=== PATIENT | female | born 1990 | race Hispanic/Latino ===

== ENCOUNTER 2020-03-10 15:38 | Inpatient (IN) | payer OTHER ==
[~2020-03-10] VITALS: Ht 160 cm; Wt 69.9 kg
[~2020-03-10 15:38] MED LIST: ACET1TAB12 PO; PREN-64 PO
[2020-03-10] MEDS ORDERED: NALOXONE HCL 0.4 MG/1 ML ML IV PRN (19:45)
[2020-03-10] MEDS ORDERED: ROPIVACAINE 0.2% 100ML VIAL 100 ML EP PRN (19:45)
[2020-03-10] MEDS ORDERED: MEPERIDINE-PF 50 MG/ML SYG IVP PRN (19:45)
[2020-03-10] MEDS ORDERED: LACTATED RINGERS 500 ML 500 ML IV PRN (19:45)
[2020-03-10] MEDS ORDERED: EPHEDRINE SULFATE 50 MG/ML AMPULE IVP PRN (19:45)
[2020-03-10] MEDS ORDERED: PROMETHAZINE HCL 25 MG/ML 1ML AMPULE IM PRN (19:45)
[2020-03-10] MEDS ORDERED: LACTATED RINGERS 1000ML 1,000 ML IV PRN (19:45)
[2020-03-10 20:16] LABS: APPEARANCE,URINE Clear (CLEAR); BILIRUBIN,URINE Negative (NEGATIVE); COLOR,URINE Dark Yellow (YELLOW); GLUCOSE, URINE (UA) Negative (NEGATIVE); KETONES,URINE >=160 mg/dL (NEGATIVE); LEUKOCYTE ESTERASE ,URINE Negative (NEGATIVE); NITRATE,URINE Negative (NEGATIVE); OCCULT BLOOD,URINE Negative (NEGATIVE); PROTEIN,URINE Trace mg/dL (NEGATIVE)
[2020-03-10 20:24] LABS: BACTERIA,URINE Rare /HPF (None Seen); MUCUS,URINE Moderate LPF (None Seen); RBC,URINE 0-1 /HPF (0-1); SQUAMOUS EPITHELIAL CELL,UR Few /HPF (0-2)
[2020-03-10 20:40] VITALS: BP 127/88
[2020-03-10] MEDS: OXYTOCIN-LR 20 UNITS/1000 ML 1,000 ML IV SCH (20:40)
[2020-03-10 20:54] LABS: HEMATOCRIT 36.5 % (36-48); MEAN CORPUSCULAR HGB CONC 34.5 g/dL (32.0-36.0); MEAN CORPUSCULAR VOLUME 89.7 fL (79-99); RED BLOOD CELL COUNT(AUTO) 4.07 MIL/uL (4.00-5.50); WHITE BLOOD COUNT (AUTO) 12.2 K/uL (4.8-10.8)
[2020-03-10 21:09] LABS: CREATININE 0.5 mg/dL (0.5-1.5); POTASSIUM 3.5 mmol/L (3.5-5.1)
[2020-03-10 21:14] LABS: BILIRUBIN,TOTAL 0.5 mg/dL (0.2-1.0); TOTAL PROTEIN, SERUM 7.2 g/dL (6.0-8.3); URIC ACID 5.3 mg/dL (2.6-7.2)
[2020-03-10 21:15] LABS: INR 0.87 (0.85-1.15); PARTIAL THROMBOPLASTIN TIME 25.2 SEC (26.3-35.5); PROTHROMBIN TIME 9.4 SEC (9.6-11.6)
[2020-03-11] MEDS: OXYTOCIN-LR 20 UNITS/1000 ML 1,000 ML IV SCH (03:49)
[2020-03-11] MEDS ORDERED: PROM50TA3 PO (06:11)
[2020-03-11] MEDS ORDERED: PREN1TAB80 PO (06:11)
[2020-03-11] MEDS ORDERED: MISOPROSTOL 200 MCG TABLET VG PRN (07:30)
[2020-03-11] MEDS ORDERED: LIDOCAINE HCL 1% 20 ML VIAL INJ PRN (07:30)
[2020-03-11] MEDS ORDERED: METHYLERGONOVINE MALEATE 0.2 MG/1 ML ML IM PRN (07:30)
[2020-03-11] MEDS ORDERED: FENTANYL CITRATE PF 50 MCG/1 ML 2ML VIAL ONE (11:54)
[2020-03-11] MEDS ORDERED: ACETAMINOPHEN-CODEINE 300/30MG TAB PO PRN (13:15)
[2020-03-11] MEDS ORDERED: WITCH HAZEL 1 PAD TP PRN (13:15)
[2020-03-11] MEDS ORDERED: DIPH,PERTUSS(ACELL),TET VAC/PF 0.5 ML VIAL IM PRN (13:15)
[2020-03-11] MEDS ORDERED: OXYTOCIN-LR 20 UNITS/1000 ML 1,000 ML IV SCH (13:15)
[2020-03-11] MEDS ORDERED: LANOLIN 30GM OINTMENT TP PRN (13:15)
[2020-03-11] MEDS ORDERED: MEASLES/MUMPS/RUBELLA VACCINE, LIVE 0.5 ML/VIAL SQ PRN (13:15)
[2020-03-11] MEDS ORDERED: BENZOCAINE/LANOLIN/ALOE VERA 60 ML AEROSOL TP PRN (13:15)
[2020-03-11] MEDS ORDERED: ACETAMINOPHEN 325 MG TAB PO PRN (13:15)
[2020-03-11 14:11] VITALS: BP 128/83
[2020-03-11] MEDS: IBUPROFEN 600 MG TABLET PO PRN (15:24)
[2020-03-11 20:32] VITALS: BP 120/78
[2020-03-11] MEDS: DOCUSATE SODIUM 100 MG CAP PO SCH (20:32)
[2020-03-11 23:28] VITALS: BP 117/83
[2020-03-12] MEDS: IBUPROFEN 600 MG TABLET PO PRN ×2 (00:30→09:58)
[2020-03-12 03:21] VITALS: BP 101/62
[2020-03-12 06:44] LABS: HEMATOCRIT 27.2 % (36-48); MEAN CORPUSCULAR HGB CONC 34.2 g/dL (32.0-36.0); MEAN CORPUSCULAR VOLUME 90.7 fL (79-99); RED CELL DISTRIBUTION WIDTH 12.9 % (11.0-15.5); WHITE BLOOD COUNT (AUTO) 9.3 K/uL (4.8-10.8)
[2020-03-12 07:14] VITALS: BP 101/61
[2020-03-12 09:13] LABS: HEPATITIS Bs ANTIGEN SCREEN P Negative (Negative)
[2020-03-12] MEDS: DOCUSATE SODIUM 100 MG CAP PO SCH (09:58)
[2020-03-12 11:42] VITALS: BP 107/70
== END 2020-03-12 13:45 | disposition home or self-care (01) | DRG 807 ==
LOC: OBSVTOIN 19:21 → LDH 19:21 → WSH 03-11 14:10
PROVIDERS: ADMIT Obstetrics & Gynecology; ATTEND Obstetrics & Gynecology
PROC: 10E0XZZ Delivery of Products of Conception, External Approach (ICD-10-PCS; principal; 2020-03-11)
PROC: 0KQM0ZZ Repair Perineum Muscle, Open Approach (ICD-10-PCS; 2020-03-11)
PROC: 10907ZC Drainage of Amniotic Fluid, Therapeutic from Products of Conception, Via Natural or Artificial Opening (ICD-10-PCS; 2020-03-11)
PROC: 3E033VJ Introduction of Other Hormone into Peripheral Vein, Percutaneous Approach (ICD-10-PCS; 2020-03-11)
PROC: 3E0P7VZ Introduction of Hormone into Female Reproductive, Via Natural or Artificial Opening (ICD-10-PCS; 2020-03-11)
PROC: 3E0234Z Introduction of Serum, Toxoid and Vaccine into Muscle, Percutaneous Approach (ICD-10-PCS; 2020-03-11)
PROC: 3E0134Z Introduction of Serum, Toxoid and Vaccine into Subcutaneous Tissue, Percutaneous Approach (ICD-10-PCS; 2020-03-11)
PROC: 3E0R3BZ Introduction of Anesthetic Agent into Spinal Canal, Percutaneous Approach (ICD-10-PCS; 2020-03-11)
PROC: 00HU33Z Insertion of Infusion Device into Spinal Canal, Percutaneous Approach (ICD-10-PCS; 2020-03-11)
DX: O14.03 Mild to moderate pre-eclampsia, third trimester (principal); Z37.0 Single live birth; O70.1 Second degree perineal laceration during delivery; Z3A.38 38 weeks gestation of pregnancy; Z23 Encounter for immunization
CPT/HCPCS: 36415; 80053; 81001; 84550; 85027; 85384; 85610; 85730; 86592; 86850; 86900; 86901; 87340; 90715; A4314; A4351; G0378; J2175; J2210; J2550; J2590; J2795; J3010

== ENCOUNTER 2024-01-13 18:25 | Emergency (ER) | payer OTHER ==
[~2024-01-13] VITALS: Ht 530.9 cm; Wt 67.6 kg
[~2024-01-13 18:25] MED LIST changes: +PREN1TAB80 PO; +PROM50TA3 PO
[2024-01-13 18:45] VITALS: BP 144/79; PULSE 88; RESP 18; O2SAT 99
[2024-01-13] MEDS: IBUPROFEN 800 MG TAB PO ONE (18:54)
[2024-01-13] MEDS ORDERED: IBUP-2077 PO (18:56)
[2024-01-13] MEDS ORDERED: TRIP30O TP (18:56)
[2024-01-13] MEDS ORDERED: CEPH500B PO (18:56)
[2024-01-13] MEDS: TETANUS/DIPHTHERIA TOXOID [ADULT] 0.5 ML VIAL IM ONE (18:57)
== END 2024-01-13 19:09 | disposition home or self-care (01) ==
LOC: EDH 18:25
DX: T24.211A Burn of second degree of right thigh, initial encounter (principal); T21.22XA Burn of second degree of abdominal wall, initial encounter; Z79.899 Other long term (current) drug therapy; X08.8XXA Exposure to other specified smoke, fire and flames, initial encounter; Y93.89 Activity, other specified; Y92.89 Other specified places as the place of occurrence of the external cause; Y99.8 Other external cause status
CPT/HCPCS: 90471; 90714

== ENCOUNTER 2024-09-14 11:40 | Emergency (ER) | payer OTHER ==
[~2024-09-14] VITALS: Ht 152.4 cm; Wt 70.3 kg
[~2024-09-14 11:40] MED LIST changes: +CEPH500B PO; +IBUP-2077 PO; +TRIP30O TP
--- NOTE | 2024-09-14 12:40 | ERN ---
ED Note History of Present Illness Stated Complaint: VOMITTING,DIARRHEA Chief Complaint: Abdominal Pain Time Seen by MD: 12:05 Time Seen by Midlevel: 12:10 Dictation: 34-year-old female with no past medical history coming in with complaints of nausea and vomiting since yesterday at 8:00 a.m.. Patient states she has had about six episodes of vomiting and six as opposed of diarrhea, nonbloody. States before the symptoms began she had eaten some hot dogs with steele and neal de escobar. Allergies: Coded Allergies: No Known Drug Allergies (Unverified Allergy, Unknown, 06/14/16) Home Meds Active Scripts Famotidine (Pepcid) 20 Mg Tablet, 1 TAB PO BID for 30 Days, #60 TAB 0 Refills Prov:NATALIIA FISCHER ETHYLBENZENE CRACKING SUPERVISOR 09/14/24 Ondansetron (Ondansetron Odt) 4 Mg Tab.rapdis, 4 MG PO Q6HPRN PRN for nausea, #16 TAB 0 Refills Prov:NATALIIA FISCHER ETHYLBENZENE CRACKING SUPERVISOR 09/14/24 Ibuprofen (Ibuprofen 800 mg Tab) 800 Mg Tab, 800 MG PO Q6H PRN for PAIN, #30 TAB Prov:SKYLER REN ETHYLBENZENE CRACKING SUPERVISOR 01/13/24 Cephalexin Monohydrate (Keflex) 500 Mg Cap, 500 MG PO QID for 7 Days, #28 CAP Prov:SKYLER REN ETHYLBENZENE CRACKING SUPERVISOR 01/13/24 Neomy Sulf/Bacitrac Zn/Poly (Triple Antibiotic/Neosporin Oint) 3.5 Mg-400 Unit- 5,000 Unit/Gram Oint, 1 APPL TP TID for 5 Days, #60 GM Prov:SKYLER REN ETHYLBENZENE CRACKING SUPERVISOR 01/13/24 Acetaminophen with Codeine (Tylenol with Codeine #3 Tablet) 1 Each Tablet, 1-2 TAB PO Q4HPRN PRN for PAIN, #40 TAB Prov:ANTONY MONTES MD 10/26/16 Reported Medications Promethazine HCl (Promethazine HCl) 50 Mg Tablet, 50 MG PO DAILYDINNER, TAB 03/11/20 Vits W-Ca,Fe,FA(<1Mg) ( Vitamins) 1 Each Tablet, 1 EACH PO DAILYDINNER, TAB 03/11/20 Vit #76/Iron,Carb/FA (Prenatabs Rx Tablet) 1 Each Tablet, 1 EACH PO DAILY, TAB 06/15/16 Past Medical History Past Medical History: GERD Surgical History: Cholecystectomy History: Not Applicable LMP: Sep 05, 2024 Review of System Dictation Constitutional: Negative for fever,chills, and weight loss Eyes: Negative for injury, pain,redness, and discharge ENT: Negative for injury,pain or swelling Cardiovascular: Negative for chest pain, palpitations, and edema Respiratory: Negative for shortness of breath, cough, and wheezing, Abdomen/GI: Positive for epigastric pain, nausea, vomiting and diarrhea Back: Negative for injury and pain : Negative for injury, bleeding and discharge MS/Extremity: Negative for injury and deformity Skin: Negative for rash, and discoloration Neuro: Negative for headache, weakness, numbness, tingling, and seizure Psych: Negative for suicide ideation, homicidal ideation, and hallucinations Review of Systems: was completed Initial Vital Sign VS Vital Signs Date Time Temp Pulse Resp B/P (MAP) Pulse Ox O2 Delivery O2 Flow Rate FiO2 09/14/24 12:19 99.0 104 16 166/104 98 Room Air 0 09/14/24 14:08 21 Physical Exam Dictation Constitutional: Negative for fever,chills, and weight loss Eyes: Negative for injury, pain,redness, and discharge ENT: Negative for injury,pain or swelling Cardiovascular: Negative for chest pain, palpitations, and edema Respiratory: Negative for shortness of breath, cough, and wheezing, Abdomen/GI: Negative for abdominal pain, nausea, vomiting, diarrhea, and constipation Back: Negative for injury and pain : Negative for injury, bleeding and discharge MS/Extremity: Negative for injury and deformity Skin: Negative for rash, and discoloration Neuro: Negative for headache, weakness, numbness, tingling, and seizure Psych: Negative for suicide ideation, homicidal ideation, and hallucinations Results (Laboratory/Radiology) Laboratory/Radiology Laboratory Tests Test 09/14/24 12:30 09/14/24 13:10 Urine Color YELLOW (YELLOW) Urine Appearance CLEAR (CLEAR) Urine pH 6.0 (5.0-8.0) Urine Specific Thayer 1.031 (1.001-1.031) Urine Protein 20 mg/dL (NEGATIVE) H Urine Glucose (UA) NEGATIVE mg/dL (NEGATIVE) Urine Ketones 40 mg/dL (NEGATIVE) H Urine Occult Blood NEGATIVE (NEGATIVE) Urine Nitrate NEGATIVE (NEGATIVE) Urine Bilirubin NEGATIVE mg/dL (NEGATIVE) Urine Urobilinogen 0.2 mg/dL (0.2-1.0) Urine Leukocyte Esterase NEGATIVE Mallory/uL Urine RBC 0-1 /HPF (0-1) Urine WBC 0-1 /HPF (0-1) Urine Squamous Epithelial Cells RARE /HPF (0-2) Urine Bacteria None /HPF (None Seen) White Blood Count 11.3 K/uL (4.8-10.8) H Red Blood Count 4.54 MIL/uL (4.00-5.50) Hemoglobin 13.3 g/dL (12.0-16.0) Hematocrit 40.1 % (36-48) Mean Corpuscular Volume 88.3 fL (79-99) Mean Corpuscular Hemoglobin 29.3 pg (27.0-33.0) Mean Corpuscular Hemoglobin Concent 33.2 g/dL (32.0-36.0) Red Cell Distribution Width 12.6 % (11.0-15.5) Platelet Count 377 K/uL (130-400) Mean Platelet Volume 8.7 fL (7.5-10.5) Immature Granulocyte % (Auto) 0.3 % (0-1) Neutrophils (%) (Auto) 94.3 % (40.0-77.0) H Lymphocytes (%) (Auto) 3.2 % (21.0-51.0) L Monocytes (%) (Auto) 2.0 % (3.0-13.0) L Eosinophils (%) (Auto) 0.0 % (0.0-8.0) Basophils (%) (Auto) 0.2 % (0.0-5.0) Neutrophils # (Auto) 10.7 K/uL (1.8-7.7) H Lymphocytes # (Auto) 0.4 K/uL (1.0-4.8) L Monocytes # (Auto) 0.2 K/uL (0.1-1.0) Eosinophils # (Auto) 0.00 K/uL (0.00-0.70) Basophils # (Auto) 0.02 K/uL (0.00-0.20) Absolute Immature Granulocyte (auto 0.03 K/uL (0-1) Nucleated Red Blood Cells 0.0 % (0.0-0.19) White Cell Morphology Comment See comments Sodium Level 141 mmol/L (136-145) Potassium Level 3.8 mmol/L (3.5-5.1) Chloride Level 101 mmol/L (101-111) Carbon Dioxide Level 30 mmol/L (21-32) Blood Urea Nitrogen 13 mg/dL (7-18) Creatinine 0.6 mg/dL (0.5-1.0) Glomerular Filtration Rate Calc 120 mL/min (>90) Random Glucose 133 mg/dL (70-105) H Total Calcium 8.9 mg/dL (8.5-10.1) Total Bilirubin 0.7 mg/dL (0.2-1.0) Direct Bilirubin 0.1 mg/dL (0.0-0.3) Aspartate Amino Transf (AST/SGOT) 13 U/L (10-37) Alanine Aminotransferase (ALT/SGPT) 24 U/L (12-78) Alkaline Phosphatase 132 U/L (50-136) Total Protein 8.1 g/dL (6.0-8.3) Albumin 3.7 g/dL (3.5-5.0) Lipase 16 U/L (16-77) Human Chorionic Gonadotropin, Quant 0 mIU/mL (0-5) ED Course ED Course Orders Procedure Category Date Status Time Cbc With Differential LAB 09/14/24 Complete 12:21 Basic Metabolic Panel LAB 09/14/24 Complete 12:21 Hepatic Function Panel LAB 09/14/24 Complete 12:21 Hcg,Quantitative LAB 09/14/24 Complete 12:21 Urinalysis Profile LAB 09/14/24 Complete 12:21 0.9%Nacl 1000ml (Ns PHA 09/14/24 Complete 1000ml) 12:21 Famotidine 20mg Vial PHA 09/14/24 Complete (Pepcid 20mg Vial) 12:21 Ondansetron 4mg Inj PHA 09/14/24 Complete (Zofran 4mg Inj) 12:21 Lipase LAB 09/14/24 Complete 13:10 Current Medications Medications (Trade) Dose Ordered Sig/Elodia Route PRN Reason Start Time Stop Time Status Last Admin Dose Admin Famotidine (Pepcid 20mg Vial) 20 mg ONCE STAT IV 09/14/24 12:21 09/14/24 12:23 DC 09/14/24 13:54 Ondansetron HCl (zoFRAN 4MG INJ) 4 mg ONCE STAT IVP 09/14/24 12:21 09/14/24 12:23 DC 09/14/24 13:54 Sodium Chloride 1,000 ml @ 1,000 mls/hr Q1H STAT IV 09/14/24 12:21 09/14/24 13:20 DC 09/14/24 13:54 Vital Signs Date Time Temp Pulse Resp B/P (MAP) Pulse Ox O2 Delivery O2 Flow Rate FiO2 09/14/24 15:14 98.2 98 20 121/63 99 Room Air* 0 21 09/14/24 14:29 99.0 61 14 128/82 99 Room Air* 0 09/14/24 14:08 99.9 61 14 146/90 99 Room Air* 0 09/14/24 12:19 99.0 104 16 166/104 98 Room Air 0 Medical Decision Making MDM MDM: 34-year-old female with no past medical history coming in with complaints of nausea and vomiting since yesterday at 8:00 a.m.. Patient states she has had about six episodes of vomiting and six as opposed of diarrhea, nonbloody. Sta micheline before the symptoms began she had eaten some hot dogs with steele and neal de escobar.CBC shows mild leukocytosis of 11.3, no anemia, no thrombocytopenia. Chemistry shows no acute findings. No kidney injury. No transaminitis. Lipase within normal range. HCG is negative. UA shows no evidence of urinary tract infection. After fluids, and antiemetics and antacids patient states feels better. Discussed with the patient more than likely she has gastroenteritis from a hot dog she ate earlier. We will prescribe her antiemetics to take home, educated to stay hydrated and to avoid any spicy, greasy foods. Patient verbalized understanding, answered all questions. Differential diagnosis: Gastroenteritis, gastritis, pancreatitis Rationale: Tests considered and ordered secondary to shared decision making include: Previous outside records reviewed: Old ER visits. Risk of complication and/or morbidity or mortality of patient management: None Medications-Per medication reconciliation Need for hospitalization: Patient does not meet criteria for hospitalization. Need for emergency major/minor surgery: No There are no social concerns with this patient. Prescription drug management Prescriptions will include symptomatic care Patient's prior external medical records from other ER visits were reviewed by me as indicated. Prior testing and results from previous visits were reviewed. Prior tests were taken into account with medical decision making and resource utilization, independent historian/historians were used to obtain complete medical history. I independently interpreted the test that were performed, results were reviewed by me and considered findings on radiology if ordered. Medical management and examination interpretation discussions were had by me with other qualified healthcare professionals as indicated for the patient's care. DX & DISP Disposition: Discharge Departure Impression: Primary Impression: Gastroenteritis Condition: Stable Scripts Famotidine (Pepcid) 20 Mg Tablet 1 TAB PO BID for 30 Days, #60 TAB 0 Refills Prov: NATALIIA FISCHER ETHYLBENZENE CRACKING SUPERVISOR 09/14/24 Ondansetron (Ondansetron Odt) 4 Mg Tab.rapdis 4 MG PO Q6HPRN PRN for nausea, #16 TAB 0 Refills Prov: NATALIIA FISCHER ETHYLBENZENE CRACKING SUPERVISOR 09/14/24 Referrals: DONNY HOLMAN MD (PCP) Time of Disposition: 14:05 I have reviewed the case, and I agree with, Diagnosis and Plan I performed the substantive portion of the visit. I have reviewed and personally made and approve the management plan that is documented in the notes by myself or the ALYSSIA. I acknowledge full responsibility for the patient's management plan. NATALIIA FISCHER NP Sep 14, 2024 12:40 NILO PARISI MD Sep 15, 2024 12:54
[2024-09-14 13:00] LABS: APPEARANCE,URINE CLEAR (CLEAR); BILIRUBIN,URINE NEGATIVE (NEGATIVE); COLOR,URINE YELLOW (YELLOW); GLUCOSE, URINE (UA) NEGATIVE (NEGATIVE); KETONES,URINE 40 mg/dL (NEGATIVE); LEUKOCYTE ESTERASE ,URINE NEGATIVE Leu/uL (NEGATIVE); NITRATE,URINE NEGATIVE (NEGATIVE); OCCULT BLOOD,URINE NEGATIVE (NEGATIVE); PROTEIN,URINE 20 mg/dL (NEGATIVE); UROBILINOGEN,URINE 0.2 mg/dL (0.2-1.0)
[2024-09-14 13:07] LABS: ADD UA MICROSCOPIC YES
[2024-09-14 13:09] LABS: MUCUS,URINE FEW LPF (None Seen); RBC,URINE 0-1 /HPF (0-1); SQUAMOUS EPITHELIAL CELL,UR RARE /HPF (0-2); WBC,URINE 0-1 /HPF (0-1)
[2024-09-14 13:16] LABS: BASOPHILS # (AUTO) 0.02 K/uL (0.00-0.20); BASOPHILS % (AUTO) 0.2 % (0.0-5.0); HEMATOCRIT 40.1 % (36-48); IMMATURE GRANULOCYTE ABSOLUTE 0.03 K/uL (0-1); LYMPHOCYTES # (AUTO) 0.4 K/uL (1.0-4.8); LYMPHOCYTES % (AUTO) 3.2 % (21.0-51.0); MEAN CORPUSCULAR HEMOGLOBIN 29.3 pg (27.0-33.0); MEAN CORPUSCULAR HGB CONC 33.2 g/dL (32.0-36.0); MEAN CORPUSCULAR VOLUME 88.3 fL (79-99); MONOCYTES # (AUTO) 0.2 K/uL (0.1-1.0); NEUTROPHILS # (AUTO) 10.7 K/uL (1.8-7.7); NEUTROPHILS % (AUTO) 94.3 % (40.0-77.0); PLATELET COUNT (AUTO) 377 K/uL (130-400); RED BLOOD CELL COUNT(AUTO) 4.54 MIL/uL (4.00-5.50); RED CELL DISTRIBUTION WIDTH 12.6 % (11.0-15.5); WHITE BLOOD COUNT (AUTO) 11.3 K/uL (4.8-10.8)
[2024-09-14 13:23] LABS: CREATININE 0.6 mg/dL (0.5-1.0); POTASSIUM 3.8 mmol/L (3.5-5.1)
[2024-09-14 13:34] LABS: ALBUMIN 3.7 g/dL (3.5-5.0); BILIRUBIN,DIRECT 0.1 mg/dL (0.0-0.3); BILIRUBIN,TOTAL 0.7 mg/dL (0.2-1.0); TOTAL PROTEIN, SERUM 8.1 g/dL (6.0-8.3)
[2024-09-14] MEDS: 0.9%NACL 1000ML 1,000 ML IV STA (13:54)
[2024-09-14] MEDS: FAMOTIDINE 20MG VIAL IV STA (13:54)
[2024-09-14] MEDS: ondanSETRON 4MG INJ IVP STA (13:54)
[2024-09-14] MEDS ORDERED: FAMO-136 PO (14:05)
[2024-09-14] MEDS ORDERED: ONDA-243 PO (14:05)
[2024-09-14 15:14] VITALS: BP 121/63; PULSE 98; RESP 20; TEMP 98.2; O2SAT 99
== END 2024-09-14 15:14 | disposition home or self-care (01) ==
LOC: EDH 11:40
DX: K52.9 Noninfective gastroenteritis and colitis, unspecified (principal); K21.9 Gastro-esophageal reflux disease without esophagitis; R10.2 Pelvic and perineal pain; Z90.49 Acquired absence of other specified parts of digestive tract
CPT/HCPCS: 99284; 96374; 96361; 96375; 80076; 80048; 84702; 83690; 85025; 81001; 36415; J3490; J7030; J2405

== ENCOUNTER 2025-06-17 10:27 | Emergency (ER) | payer OTHER ==
[~2025-06-17] VITALS: Ht 152.4 cm; Wt 65.9 kg
[~2025-06-17 10:27] MED LIST changes: +FAMO-136 PO; +ONDA-243 PO
[2025-06-17] MEDS ORDERED: KETO10TA2 PO (10:50)
[2025-06-17] MEDS ORDERED: AMOX1TAB16 PO (10:50)
--- NOTE | 2025-06-17 10:51 | ERN ---
ED Note History of Present Illness Stated Complaint: TOOTH ACHE Chief Complaint: Tooth Ache/Pain Time Seen by MD: 10:33 Time Seen by Midlevel: 10:36 Dictation: 35-year-old female with no past medical history coming in with complaints of right lower molar pain onset Sunday. Denies having any fever nausea or vomiting. Allergies: Coded Allergies: No Known Drug Allergies (Unverified Allergy, Unknown, 06/14/16) Home Meds Active Scripts Famotidine (Pepcid) 20 Mg Tablet, 1 TAB PO BID for 30 Days, #60 TAB 0 Refills Prov:NATALIIA FISCHER MACROECONOMICS PROFESSOR 09/14/24 Ondansetron (Ondansetron Odt) 4 Mg Tab.rapdis, 4 MG PO Q6HPRN PRN for nausea, #16 TAB 0 Refills Prov:NATALIIA FISCHER MACROECONOMICS PROFESSOR 09/14/24 Ibuprofen (Ibuprofen 800 mg Tab) 800 Mg Tab, 800 MG PO Q6H PRN for PAIN, #30 TAB Prov:SKYLER REN PRESS CATCHER 01/13/24 Cephalexin Monohydrate (Keflex) 500 Mg Cap, 500 MG PO QID for 7 Days, #28 CAP Prov:SKYLER REN PRESS CATCHER 01/13/24 Neomy Sulf/Bacitrac Zn/Poly (Triple Antibiotic/Neosporin Oint) 3.5 Mg-400 Unit- 5,000 Unit/Gram Oint, 1 APPL TP TID for 5 Days, #60 GM Prov:SKYLER REN PRESS CATCHER 01/13/24 Acetaminophen with Codeine (Tylenol with Codeine #3 Tablet) 1 Each Tablet, 1-2 TAB PO Q4HPRN PRN for PAIN, #40 TAB Prov:ANTONY MONTES MD 10/26/16 Reported Medications Promethazine HCl (Promethazine HCl) 50 Mg Tablet, 50 MG PO DAILYDINNER, TAB 03/11/20 Vits W-Ca,Fe,FA(<1Mg) ( Vitamins) 1 Each Tablet, 1 EACH PO DAILYDINNER, TAB 03/11/20 Vit #76/Iron,Carb/FA (Prenatabs Rx Tablet) 1 Each Tablet, 1 EACH PO DAILY, TAB 06/15/16 Past Medical History Past Medical History: No Pertinent History Surgical History: Cholecystectomy History: Not Applicable LMP: May 29, 2025 : 2 Para: 2 Aborts: 0 Review of System Dictation Constitutional: Negative for fever,chills, and weight loss Eyes: Negative for injury, pain,redness, and discharge ENT: Negative for injury,pain or swelling, right lower molar pain Cardiovascular: Negative for chest pain, palpitations, and edema Respiratory: Negative for shortness of breath, cough, and wheezing, Abdomen/GI: Negative for abdominal pain, nausea, vomiting, diarrhea, and constipation Back: Negative for injury and pain : Negative for injury, bleeding and discharge MS/Extremity: Negative for injury and deformity Skin: Negative for rash, and discoloration Neuro: Negative for headache, weakness, numbness, tingling, and seizure Psych: Negative for suicide ideation, homicidal ideation, and hallucinations Review of Systems: was completed Initial Vital Sign VS Vital Signs Date Time Temp Pulse Resp B/P (MAP) Pulse Ox O2 Delivery O2 Flow Rate FiO2 06/17/25 10:31 98.8 94 18 167/102 100 Room Air 0 Physical Exam Dictation General: awake, alert, NAD Head/Face: Normocephalic, atraumatic Eyes: PERRL, EOMI, vision at baseline ENT: oral cavity clear, TMs clear, no signs of any obvious tooth abscess, there is pain on palpation to the right lower molars, the last two. Neck: Trachea midline, supple, no nuchal rigidity Cardiovascular: RRR, normal S1/S2, No MRGs, no JVD Respiratory: CTAB, no respiratory distress, No rales or wheezes Abdomen: Soft, non-tender, non-distended, normal bowel sounds, no guarding or rebound. Skin: Warm, dry, normal turgor, no rash MS/Extremity: Pulses equal, no cyanosis, neurovascular intact, FROM Neuro: COAx4, GCS 15, strength 5/5, CN 2-12 intact, normal cerebellar exam, normal gait, Psych: Normal behavior, mood, and affect normal ED Course ED Course Orders Procedure Category Date Status Time Ketorolac PHA 06/17/25 Verified Tromethamine 30mg/Ml 11:00 Hydrocodone/Apap PHA 06/17/25 Verified 5/325 ([place] 5/325mg) 11:00 Vital Signs Date Time Temp Pulse Resp B/P (MAP) Pulse Ox O2 Delivery O2 Flow Rate FiO2 06/17/25 10:31 98.8 94 18 167/102 100 Room Air 0 Medical Decision Making MDM MDM: 35-year-old female with no past medical history coming in with complaints of right lower molar pain onset Sunday. Denies having any fever nausea or vomiting. Differential diagnosis: Tooth infection, tooth abscess, tooth avulsion, Rationale: Tests considered and ordered secondary to shared decision making include: Previous outside records reviewed: Old ER visits. Risk of complication and/or morbidity or mortality of patient management: None Medications-Per medication reconciliation Need for hospitalization: Patient does not meet criteria for hospitalization. Need for emergency major/minor surgery: No There are no social concerns with this patient. Prescription drug management Prescriptions will include symptomatic care Patient's prior external medical records from other ER visits were reviewed by me as indicated. Prior testing and results from previous visits were reviewed. Prior tests were taken into account with medical decision making and resource utilization, independent historian/historians were used to obtain complete medical history. I independently interpreted the test that were performed, results were reviewed by me and considered findings on radiology if ordered. Medical management and examination interpretation discussions were had by me with other qualified healthcare professionals as indicated for the patient's care. DX & DISP Disposition: Discharge Departure Impression: Primary Impression: Tooth infection Condition: Stable Scripts Ketorolac Tromethamine (Ketorolac Tromethamine) 10 Mg Tablet 1 TAB PO Q6HPRN PRN for pain for 5 Days, #20 TAB 0 Refills Prov: NATALIIA FISCHER CNP 06/17/25 Amoxicillin/Potassium Clav (Amox Tr-K Clv 875-125 mg Tab) 875 Mg-125 Mg Tablet 1 EACH PO BID for 5 Days, #10 TAB 0 Refills Prov: NATALIIA FISCHER CNP 06/17/25 Additional Instructions: Take antibiotics as prescribed. Take pain medication as prescribed. You can add Tylenol if needed. Did not at any Advil or ibuprofen as this is similar to the ketorolac that I prescribed. Schedule an appointment as soon as possible with a dentist for further evaluation. Referrals: DONNY HOLMAN MD (PCP) Time of Disposition: 10:49 I have reviewed the case, and I agree with, Diagnosis and Plan NATALIIA FISCHER CNP Jun 17, 2025 10:51
[2025-06-17] MEDS: HYDROcodone/APAP 5/325 1 TAB TABLET PO ONE (11:47)
[2025-06-17 12:50] VITALS: BP 161/89; PULSE 77; RESP 20; TEMP 98.6; O2SAT 100
== END 2025-06-17 13:16 | disposition home or self-care (01) ==
LOC: EDH 10:27
DX: K04.7 Periapical abscess without sinus (principal); Z90.49 Acquired absence of other specified parts of digestive tract
CPT/HCPCS: 99283; 96372; J1885